=== PATIENT | female | born 2000 | race Caucasian/White ===

== ENCOUNTER 2021-01-29 07:28 | Emergency (ER) | payer BC ==
--- NOTE | 2021-01-29 08:03 | EDM.PDOC ---
ED HPI GENERAL MEDICAL PROBLEM - General Chief Complaint: BRICKLAYER PAVING BRICK Problem Stated Complaint: EARLY ; SEVERE CRAMPING Time Seen by Provider: 01/29/21 08:03 Source of Information: Reports: Patient History Limitations: Reports: No Limitations - History of Present Illness INITIAL COMMENTS - FREE TEXT/NARRATIVE: Patient is a 20-year-old female G2, P1 who presents today for abdominal cramps. Patient found out that she was from home test last week states this morning she woke up and has more cramping suprapubic area. Patient denies any vaginal bleeding or discharge or seen any clots or tissue. Patient denies any vomiting but states she does get nauseous sometimes with small food but states tolerating p.o. Patient denies any fever chills or other complaints. Lower abdominal Pain Score (Numeric/FACES): 8 - Related Data Allergies Allergy/AdvReac Type Severity Reaction Status Date / Time No Known Allergies Allergy Verified 10/13/19 14:31 MDT Home Meds: Home Meds Vits #93/Iron Fum/FA [ Formula Tablet] 1 each PO DAILY 11/27/19 [History] Acetaminophen [Tylenol] 650 mg PO Q4H PRN tablet 11/29/19 [Rx] Ibuprofen [Motrin] 600 mg PO Q6H PRN tablet 11/29/19 [Rx] Past Medical History HEENT History: Reports: None Cardiovascular History: Reports: None Respiratory History: Reports: Asthma Other Respiratory History: exercise induced in youth Gastrointestinal History: Reports: Colon Polyp, GERD Genitourinary History: Reports: Renal Calculus Other Genitourinary History: ECSW lithotripsy procedure 2016 BRICKLAYER PAVING BRICK History: Reports: , Spontaneous Musculoskeletal History: Reports: Back Pain, Chronic Other Musculoskeletal History: Elbow fracture, L wrist fx, R knee pain Neurological History: Reports: Concussion Other Neuro History: L4-5 bulging disk - chronic back pain Psychiatric History: Reports: Depression Other Psychiatric History: Past hx. None during or prior recent hx of either. Pt denies any SI/suicidal thoughts at present. Endocrine/Metabolic History: Reports: None Hematologic History: Reports: None Immunologic History: Reports: None Oncologic (Cancer) History: Reports: None Dermatologic History: Reports: Other (See Below) Other Dermatologic History: cystic acne - Infectious Disease History Infectious Disease History: Reports: None - Past Surgical History Head Surgeries/Procedures: Reports: None HEENT Surgical History: Reports: None Cardiovascular Surgical History: Reports: None GI Surgical History: Reports: Colonoscopy, EGD Other GI Surgeries/Procedures: 2017 colon polyp removed Female Surgical History: Reports: D&C, Lithotripsy/ESWL Neurological Surgical History: Reports: None Oncologic Surgical History: Reports: None Dermatological Surgical History: Reports: None Social & Family History - Family History Family Medical History: No Pertinent Family History - Recreational Drug Use Recreational Drug Use: No ED ROS GENERAL - Review of Systems Review Of Systems: See Below Constitutional: Reports: No Symptoms HEENT: Reports: No Symptoms Respiratory: Reports: No Symptoms Cardiovascular: Reports: No Symptoms Endocrine: Reports: No Symptoms GI/Abdominal: Reports: Abdominal Pain : Reports: No Symptoms Musculoskeletal: Reports: No Symptoms Skin: Reports: No Symptoms Neurological: Reports: No Symptoms Psychiatric: Reports: No Symptoms Hematologic/Lymphatic: Reports: No Symptoms Immunologic: Reports: No Symptoms ED EXAM - Physical Exam Exam: See Below Exam Limited By: No Limitations General Appearance: Alert, WD/WN, No Apparent Distress Head: Atraumatic Neck: Normal Inspection, Supple Respiratory/Chest: No Respiratory Distress, Lungs Clear, Normal Breath Sounds Cardiovascular: Normal Peripheral Pulses, Regular Rate, Rhythm, No Edema GI/Abdominal Exam: Normal Bowel Sounds, Soft, Non-Tender Neurological: Alert, Oriented Course - Vital Signs Last Recorded V/S: Last Vital Signs Temp 96.9 F 01/29/21 07:44 Pulse 81 01/29/21 07:44 Resp 17 01/29/21 07:44 BP 117/81 01/29/21 07:44 Pulse Ox 97 01/29/21 07:44 - Orders/Labs/Meds Labs: Laboratory Tests 01/29/21 01/29/21 01/29/21 Range/Units 08:01 08:01 08:48 WBC 9.58 (4.0-11.0) K/uL RBC 4.69 (4.30-5.90) M/uL Hgb 14.9 (12.0-16.0) g/dL Hct 42.9 (36.0-46.0) % MCV 91.5 (80.0-98.0) fL MCH 31.8 (27.0-32.0) pg MCHC 34.7 (31.0-37.0) g/dL RDW Std Deviation 42.6 (28.0-62.0) fl RDW Coeff of [place] 13 (11.0-15.0) % Plt Count 321 (150-400) K/uL MPV 9.20 (7.40-12.00) fL Neut % (Auto) 69.9 (48.0-80.0) % Lymph % (Auto) 22.4 (16.0-40.0) % [place] % (Auto) 5.4 (0.0-15.0) % Eos % (Auto) 2.1 (0.0-7.0) % Baso % (Auto) 0.2 (0.0-1.5) % Neut # (Auto) 6.7 H (1.4-5.7) K/uL Lymph # (Auto) 2.2 (0.6-2.4) K/uL [place] # (Auto) 0.5 (0.0-0.8) K/uL Eos # (Auto) 0.2 (0.0-0.7) K/uL Baso # (Auto) 0.0 (0.0-0.1) K/uL Sodium 135 L (136-145) mmol/L Potassium 3.9 (3.5-5.1) mmol/L Chloride 105 (98-107) mmol/L Carbon Dioxide 22.2 (21.0-32.0) mmol/L BUN 13 (7.0-18.0) mg/dL Creatinine 0.8 (0.6-1.0) mg/dL Est Cr Clr Drug Dosing 123.28 mL/min Estimated GFR (MDRD) > 60.0 ml/min Glucose 140 H (74-106) mg/dL Calcium 8.2 L (8.5-10.1) mg/dL Total Bilirubin 0.2 (0.2-1.0) mg/dL AST 16 (15-37) IU/L ALT 20 (14-63) IU/L Alkaline Phosphatase 77 (46-116) U/L Total Protein 7.3 (6.4-8.2) g/dL Albumin 3.5 (3.4-5.0) g/dL Globulin 3.8 (2.6-4.0) g/dL Albumin/Globulin Ratio 0.9 (0.9-1.6) HCG, Quant 425.0 mIU/mL Urine Color YELLOW Urine Appearance HAZY Urine pH 6.0 (5.0-8.0) Ur Specific [place] 1.025 (1.001-1.035) Urine Protein NEGATIVE (NEGATIVE) mg/dL Urine Glucose (UA) NEGATIVE (NEGATIVE) mg/dL Urine Ketones NEGATIVE (NEGATIVE) mg/dL Urine Occult Blood TRACE-INTACT H (NEGATIVE) Urine Nitrite NEGATIVE (NEGATIVE) Urine Bilirubin NEGATIVE (NEGATIVE) Urine Urobilinogen 0.2 (<2.0) EU/dL Ur Leukocyte Esterase MODERATE H (NEGATIVE) Urine RBC 0-2 (0-2/HPF) Urine WBC 15-20 (0-5/HPF) Ur Epithelial Cells MODERATE (NONE-FEW) Urine Bacteria 1+ H (NEGATIVE) Urine Mucus LIGHT (NONE-MOD) - Re-Assessments/Exams Free Text/Narrative Re-Assessment/Exam: 01/29/21 08:39 We attempted a bedside sonogram to confirm IUP. Patient is very early in and there was a uterine stripe no signs of pole or yolk sac. This may be due to early . Patient again is hemodynamically stable has no signs of distress. Patient will likely need to be beta listed and return for ultrasound at a later date. Departure - Departure Time of Disposition: 08:50 Disposition: Against Medical Advice 07 Condition: Good Clinical Impression: - Discharge Information *PRESCRIPTION DRUG MONITORING PROGRAM REVIEWED*: Not Applicable *COPY OF PRESCRIPTION DRUG MONITORING REPORT IN PATIENT SANDIP: Not Applicable Referrals: Darren Fisher MD [Primary Care Provider] - Forms: ED Department Discharge Sepsis Event Note (ED) - Evaluation Sepsis Screening Result: No Definite Risk - Focused Exam Vital Signs: Vital Signs Temp Pulse Resp BP Pulse Ox 01/29/21 07:44 96.9 F 81 17 117/81 97 - Assessment/Plan Plan: Patient is a 20-year-old female who presents today for lower abdominal cramping. Patient that she found she is a week but is unsure of how long she has not had ultrasound. We will get labs UA to do a bedside ultrasound and reassess.
[2021-01-29 08:41] LABS: BLOOD UREA NITROGEN,BUN 13 mg/dL (7.0-18.0); CARBON DIOXIDE,CO2 22.2 mmol/L (21.0-32.0); CHLORIDE,CL 105 mmol/L (98-107); GLUCOSE RANDOM 140 mg/dL (74-106); POTASSIUM,K 3.9 mmol/L (3.5-5.1); SODIUM,NA 135 mmol/L (136-145)
== END 2021-01-29 08:54 | disposition left against medical advice (07) ==
LOC: MW.ED 07:28
DX: O99.891 Other specified diseases and conditions complicating pregnancy (principal); R10.30 Lower abdominal pain, unspecified; O99.511 Diseases of the respiratory system complicating pregnancy, first trimester; J45.909 Unspecified asthma, uncomplicated
CPT/HCPCS: 36415; 80053; 81001; 84702; 85025; 99283; 99284